=== PATIENT | male | born 1965 | race Caucasian/White ===

== ENCOUNTER → 2020-07-11 | Day surgery (SDC) | payer MEDICAID ==
[~2020-07-11] MED LIST: Lactated Ringers 1,000 ML IV SCH; Propofol 200 MG/20 ML SDV ONE; fentaNYL 100 MCG/2 ML SDV ONE
[2020-07-11 09:29] VITALS: BP 132/83; PULSE 68
--- NOTE | 2020-07-11 11:47 | OR ---
DATE OF OPERATION: 07/11/2020 PREOPERATIVE DIAGNOSIS: DYSPHAGIA. POSTOPERATIVE DIAGNOSIS: DYSPHAGIA. SURGEON: Mirza Packer MD PROCEDURE: DIAGNOSTIC ESOPHAGOGASTRODUODENOSCOPY WITH BIOPSIES X4, LELIA. ANESTHESIA: MAC. COMPLICATIONS: None. SPECIMEN: 1. Duodenal bulb biopsy x1. 2. Antral biopsy x2. 3. Antral LELIA. 4. Distal esophageal biopsy x1. FINDINGS: 1. Full-length diagnostic EGD. 2. Moderate duodenitis, duodenal bulb. 3. Diffuse antral gastritis. 4. Reflux esophagitis, mild. RECOMMENDATIONS: The patient will be placed on proton pump therapy and followed medically. INDICATIONS: The patient had been having some reflux issues and dysphagia at times. We elected to proceed with a diagnostic EGD. DESCRIPTION OF PROCEDURE: The patient was prepped and draped, placed in the left lateral decubitus position. A lubricated Olympus gastroscope was inserted and advanced to the cricopharyngeus area with patient swallow, intubated into the esophagus. The esophageal lining was benign until its most distal portion where the patient had 1 little small area of linear esophagitis, mild. No ulceration. Did do a biopsy of that. It did not appear to be Taylor's in nature. There was no hernia associated with this and no stricturing. The scope was advanced into the stomach, through the pylorus, and into the second portion of the duodenum. The second portion of the duodenum was benign. The duodenal bulb had moderate duodenitis without ulceration. Biopsy was taken. The scope was brought back into the stomach and retroflexed. The upper fundus and cardia appeared benign. Upon straightening, the rest of the fundus appeared unremarkable. The antrum had diffuse gastritis, active and moderate in nature. Two biopsies were taken of the distal antrum along with a CLOtest from an unaffected portion. There were no polyps, masses, or otherwise. Air was suctioned. The scope removed without complication. ANDREY/LIZZ /[id number]
== END ==
LOC: CC.SDS 06:51
PROVIDERS: ATTEND Family Medicine
DX: K21.00 Gastro-esophageal reflux disease with esophagitis, without bleeding (principal); K29.90 Gastroduodenitis, unspecified, without bleeding; K31.89 Other diseases of stomach and duodenum; R23.4 Changes in skin texture; I10 Essential (primary) hypertension; E78.5 Hyperlipidemia, unspecified; E11.40 Type 2 diabetes mellitus with diabetic neuropathy, unspecified; I49.40 Unspecified premature depolarization; G47.00 Insomnia, unspecified; Z79.899 Other long term (current) drug therapy; Z98.890 Other specified postprocedural states
CPT/HCPCS: 00731; 87081; J2704; J3010; J7120

== ENCOUNTER → 2020-11-14 | Day surgery (SDC) | payer MEDICAID ==
[~2020-11-14] MED LIST changes: -Lactated Ringers 1,000 ML IV SCH; +Lidocaine 2% 5 ML SDV ONE; +Metoclopramide 10 MG/2 ML SDV ONE
[2020-11-14] MEDS: Lactated Ringers 1,000 ML IV SCH (08:12)
[2020-11-14 09:50] VITALS: BP 145/92; PULSE 77
--- NOTE | 2020-11-14 10:04 | OR ---
DATE OF OPERATION: 11/14/2020 PREOPERATIVE DIAGNOSIS: SCREENING COLONOSCOPY. POSTOPERATIVE DIAGNOSIS: SCREENING COLONOSCOPY. SURGEON: Mirza Packer MD PROCEDURE: FULL-LENGTH COLONOSCOPY. ANESTHESIA: MAC. COMPLICATIONS: None. SPECIMEN: None. FINDINGS: Normal full-length colonoscopy. RECOMMENDATIONS: Followup colonoscopy in 10 years. INDICATIONS: The patient was seen for routine physical, and he is due for a routine screening colonoscopy. DESCRIPTION OF PROCEDURE: The patient was prepped and draped, placed in the left lateral decubitus position. A lubricated Olympus colonoscope was inserted and easily advanced to the cecum. Direct visualization of the ileocecal valve and appendiceal orifice was accomplished. The bowel prep was adequate. Upon withdrawal of the scope, the entire colon was visualized thoroughly. No signs of any polyps, masses, ulceration, or bleeding sites were found. No vascular abnormalities or signs of colitis. The rectal vault was benign. Retroflexion showed no perianal lesions. Air was suctioned and scope removed without complication. ANDREY/YOSIL /[id number]
== END ==
LOC: CC.SDS 07:49
PROVIDERS: ATTEND Family Medicine
DX: Z12.11 Encounter for screening for malignant neoplasm of colon (principal); N52.9 Male erectile dysfunction, unspecified; E78.5 Hyperlipidemia, unspecified; I10 Essential (primary) hypertension; E11.42 Type 2 diabetes mellitus with diabetic polyneuropathy; M54.5 Low back pain; E66.9 Obesity, unspecified; Z79.899 Other long term (current) drug therapy; Z98.890 Other specified postprocedural states; Z68.31 Body mass index [BMI] 31.0-31.9, adult
CPT/HCPCS: 45378; J2704; J2765; J3010; J7120; 00812